=== PATIENT | male | born 1990 | race Caucasian/White ===

== ENCOUNTER 2019-05-18 13:59 | Emergency (ER) | payer BC ==
[~2019-05-18] VITALS: Ht 177.8 cm; Wt 90.7 kg
[2019-05-18 14:02] VITALS: BP 139/78
--- NOTE | 2019-05-18 14:08 | NUR ---
PT WHEELCHAIR ASSISTED TO BED 10
--- NOTE | 2019-05-18 14:09 | NUR ---
29 y/o m c/c with left harmstring pain x 1 hour ago after playing soccer; pain 10/10 needle sensation. per pt felt that it "ripped" ; has not taken any medication for the pain. pt nka. no hx. no rx. no n/v/d. side rail x1. family at bedside.
[2019-05-18] MEDS ORDERED: KETOROLAC 30 MG/ML VIAL IM ONE (15:30)
--- NOTE | 2019-05-18 15:40 | NUR ---
PT LEFT LEG WRAPED WITH X2 3" JACOB WRAPS, PT CMS WNL BEFORE AND AFTER. PT GIVEN CRUTCHES, CRUTCHES SIZED TO PT HIEGHT AND MONITORING TECH PLACEMENT, PT STATES THEY KNOW HOW TO USE CRUTCHES, PT DEMENSTRATED PROPER AND SAFE USE OF CRUTCHES UP AND DOWN HALLWAY OF ED, PT STATES THEY FEEL COMFORTABLE WITH USE OF CRUTCHES.
[2019-05-18 15:51] VITALS: BP 139/78
== END 2019-05-18 15:51 | disposition home or self-care (01) ==
LOC: MED 13:59
DX: S86.812A Strain of other muscle(s) and tendon(s) at lower leg level, left leg, initial encounter (principal); X58.XXXA Exposure to other specified factors, initial encounter; Y93.66 Activity, soccer; Y92.89 Other specified places as the place of occurrence of the external cause; Y99.8 Other external cause status
CPT/HCPCS: 96372; 99283; J1885